=== PATIENT | male | born 1960 | race African-American/Black ===

== ENCOUNTER 2021-10-04 18:30 | Inpatient (IN) | payer OTHER ==
[~2021-10-04] VITALS: Ht 185.4 cm; Wt 115.8 kg
[2021-10-04] VITALS (12 sets, daily range): BP systolic 122–196; BP diastolic 61–89
[~2021-10-04 18:30] MED LIST: ASPIRIN ADULT L81 M2; HYDROCHLOROT25 MG PO; LISI20TA5; NORVASC10 M1 PO
[2021-10-04 19:13] LABS: HEMATOCRIT 40.4 % (39.0-50.0); HEMOGLOBIN 13.2 g/dl (14.0-18.0); IMMATURE GRANULOCYTES 0.2 % (0.0-5.0); MEAN CELL VOLUME 98.3 fL CALC (80.0-100.0); MEAN CORPUSCULAR HGB 32.1 pG CALC (26.0-32.0); MEAN CORPUSCULAR HGB CONC 32.7 g/dL CAL (32.0-36.0); NEUT# 2.45 thou/uL (1.82-7.42); RED BLOOD COUNT 4.11 mill/uL (4.70-6.10); RED CELL DISTRI WIDTH 11.7 % (11.5-15.5)
[2021-10-04] MEDS ORDERED: DOCQLACE100 MG PO (19:17)
[2021-10-04] MEDS ORDERED: [UNRECOGNIZED DRUG - OTHER] PO (19:18)
[2021-10-04] MEDS ORDERED: LORATADINE10 M1 PO (19:19)
[2021-10-04] MEDS ORDERED: LOSARTAN POTASS50 MG PO (19:21)
[2021-10-04 19:40] LABS: ALBUMIN 3.9 g/dL (3.2-5.0); ALKALINE PHOSPHATASE 75 u/l (38-126); ANION GAP 12 (6-22 (CALC)); BILIRUBIN, TOTAL 0.7 mg/dL (0.0-1.4); BUN 19 mg/dL (9-20); BUN/CREATININE RATIO 17 (12-20 (CALC)); CARBON DIOXIDE 29 mmol/l (22-30); CHLORIDE 103 mmol/l (95-108); CREATININE 1.2 mg/dL (0.7-1.3); GFR FOR AFR.AMER. > 60 ML/MIN (>=60 (CALC)); GFR OTHER RACES > 60 ML/MIN (>=60 (CALC)); POTASSIUM 4.2 mmol/l (3.5-5.1); SGOT/AST 33 u/l (17-59); SODIUM 139 mmol/l (137-146); TOTAL PROTEIN 7.5 g/dL (6.3-8.2)
[2021-10-04 20:48] LABS: URINE BILIRUBIN - DIPSTICK NEGATIVE (NEGATIVE); URINE BLOOD DIPSTICK TRACE-INTACT (NEGATIVE); URINE COLOR YELLOW; URINE GLUCOSE - DIPSTICK NEGATIVE (NEGATIVE); URINE KETONE NEGATIVE (NEGATIVE); URINE LEUK ESTERASE NEGATIVE (NEGATIVE); URINE PROTEIN - DIPSTICK 100 mg/dL (NEG-TRACE); URINE SPECIFIC GRAVITY >=1.030
[2021-10-04 20:52] LABS: URINE NITRITE - DIPSTICK NEGATIVE (Negative)
[2021-10-04 21:02] LABS: URINE RBC 0-2 RBC/hpf (0-5)
[2021-10-05] VITALS (91 sets, daily range): BP systolic 113–210; BP diastolic 59–138
[2021-10-06] VITALS (23 sets, daily range): BP systolic 144–175; BP diastolic 67–86
[2021-10-06 05:57] LABS: HEMATOCRIT 38.2 % (39.0-50.0); HEMOGLOBIN 12.9 g/dl (14.0-18.0); MEAN CELL VOLUME 97.4 fL CALC (80.0-100.0); MEAN CORPUSCULAR HGB 32.9 pG CALC (26.0-32.0); MEAN CORPUSCULAR HGB CONC 33.8 g/dL CAL (32.0-36.0); RED BLOOD COUNT 3.92 mill/uL (4.70-6.10); RED CELL DISTRI WIDTH 11.8 % (11.5-15.5)
[2021-10-06 06:27] LABS: ALBUMIN 3.6 g/dL (3.2-5.0); ALKALINE PHOSPHATASE 68 u/l (38-126); ANION GAP 9 (6-22 (CALC)); BILIRUBIN, TOTAL 0.6 mg/dL (0.0-1.4); BUN 25 mg/dL (9-20); BUN/CREATININE RATIO 24 (12-20 (CALC)); CARBON DIOXIDE 27 mmol/l (22-30); CHLORIDE 107 mmol/l (95-108); CREATININE 1.1 mg/dL (0.7-1.3); GFR FOR AFR.AMER. > 60 ML/MIN (>=60 (CALC)); GFR OTHER RACES > 60 ML/MIN (>=60 (CALC)); POTASSIUM 4.4 mmol/l (3.5-5.1); SGOT/AST 28 u/l (17-59); SODIUM 139 mmol/l (137-146); TOTAL PROTEIN 6.8 g/dL (6.3-8.2)
[2021-10-07 00:14] VITALS: BP 166/77
[2021-10-07 00:21] VITALS: BP 166/77
[2021-10-07 03:26] VITALS: BP 157/74
[2021-10-07 05:21] LABS: HEMATOCRIT 37.3 % (39.0-50.0); HEMOGLOBIN 12.2 g/dl (14.0-18.0); IMMATURE GRANULOCYTES 0.8 % (0.0-5.0); MEAN CELL VOLUME 98.7 fL CALC (80.0-100.0); MEAN CORPUSCULAR HGB 32.3 pG CALC (26.0-32.0); MEAN CORPUSCULAR HGB CONC 32.7 g/dL CAL (32.0-36.0); NEUT# 10.45 thou/uL (1.82-7.42); RED BLOOD COUNT 3.78 mill/uL (4.70-6.10); RED CELL DISTRI WIDTH 11.8 % (11.5-15.5)
[2021-10-07 06:11] LABS: ANION GAP 9 (6-22 (CALC)); BUN 25 mg/dL (9-20); BUN/CREATININE RATIO 24 (12-20 (CALC)); CARBON DIOXIDE 27 mmol/l (22-30); CHLORIDE 106 mmol/l (95-108); CREATININE 1.1 mg/dL (0.7-1.3); GFR FOR AFR.AMER. > 60 ML/MIN (>=60 (CALC)); GFR OTHER RACES > 60 ML/MIN (>=60 (CALC)); MAGNESIUM 2.1 mg/dL (1.6-2.3); POTASSIUM 4.4 mmol/l (3.5-5.1); SODIUM 139 mmol/l (137-146)
[2021-10-07 08:00] VITALS: BP 176/76
[2021-10-07 08:31] VITALS: BP 176/76
[2021-10-07] MEDS ORDERED: AMLODIPINE BESYL5 MG PO (10:52)
[2021-10-07] MEDS ORDERED: NORMODYNE/TRAN100 MG PO (10:52)
== END 2021-10-07 12:32 | DRG 916 ==
LOC: ED 18:30 → ED-I 19:57 → ED 20:02 → ICU 20:03 → MS2 10-06 18:10
PROVIDERS: Emergency Medicine; Family Medicine; Internal Medicine; ADMIT Internal Medicine; ATTEND Internal Medicine
PROC: 0BH17EZ Insertion of Endotracheal Airway into Trachea, Via Natural or Artificial Opening (ICD-10-PCS; principal; 2021-10-04)
PROC: 5A1935Z Respiratory Ventilation, Less than 24 Consecutive Hours (ICD-10-PCS; 2021-10-04)
PROC: 05HM33Z Insertion of Infusion Device into Right Internal Jugular Vein, Percutaneous Approach (ICD-10-PCS; 2021-10-04)
DX: T78.3XXA Angioneurotic edema, initial encounter (principal); T46.4X5A Adverse effect of angiotensin-converting-enzyme inhibitors, initial encounter; I10 Essential (primary) hypertension; Y92.149 Unspecified place in prison as the place of occurrence of the external cause
CPT/HCPCS: J1650